=== PATIENT | female | born 1955 | race Caucasian/White ===

== ENCOUNTER 2019-01-09 18:58 | Inpatient (IN) ==
[2019-01-09] MEDS ORDERED: methylPREDNISolone 125 MG/2 ML VIAL IVP ONE (19:16)
[2019-01-09] MEDS ORDERED: Azithromycin 500 MG in 0.9 % Sodium Chloride 250 ML IVPB ONE (19:16)
[2019-01-09] MEDS ORDERED: 0.9 % Sodium Chloride 1,000 ML IVC ONE (19:17)
[2019-01-09 19:34] LABS: Basophils % 0.4 %; Hemoglobin 12.4 g/dL (11.5-15.4); Immature Granulocytes % 0.5 % (0-4); Lymphocytes # 1.8 K/mcL (0.6-4.6); Mean Corpuscular HGB Conc 32.6 g/dL (31.6-35.5); Mean Corpuscular Hemoglobin 27.3 pg (28.0-33.3); Mean Corpuscular Volume 83.7 fL (83.0-100.0); Mean Platelet Volume 11.2 fL (9.4-12.4); Monocytes # 1.2 K/mcL (0.0-1.3); Monocytes % 11.1 %; Neutrophils # 7.4 K/mcL (1.6-8.9); Platelet Count 206 K/mcL (140-400); Red Blood Count 4.54 M/mcL (3.82-4.97); White Blood Count 10.5 K/mcL (4.3-11.1)
[2019-01-09] MEDS ORDERED: Ipratropium/Albuterol Neb 3 ML IH ONE (19:35)
[2019-01-09 19:48] LABS: Bilirubin,Urine Negative (Negative); Blood,Urine Negative (Negative); Clarity,Urine Clear (Clear); Color,Urine Yellow (Yellow); Glucose,Urine (UA) >=1000 mg/dL (Normal); Ketones,Urine Negative (Negative); Leukocyte Esterase,Urine Negative (Negative); Nitrite,Urine Negative (Negative); PH,Urine 5.5 pH Units (5.0-8.0); Protein,Urine 30 mg/dL (Neg-Trace); Specific Gravity,Urine > 1.030 (1.010-1.025); Urobilinogen,Urine Normal (Normal)
[2019-01-09 19:49] LABS: Bacteria,Urine None Seen per hpf (None-Few); Hyaline Casts,Urine None Seen per lpf (None-Few); RBC,Urine 0-3 per hpf (0-3); Squamous Epithelial Cell,Urine Many per lpf (None-Few); WBC,Urine 0-3 per hpf (0-3)
[2019-01-09 19:55] LABS: BUN/Creatinine Ratio 23 (6-26); Blood Urea Nitrogen 18 mg/dL (8-23); Calcium 9.4 mg/dL (8.6-10.3); Carbon Dioxide 28 mEq/L (23-29); Chloride 97 mEq/L (98-107); Glucose 440 mg/dL (70-105); Osmolality,Calculated 297 (280-300); Potassium 4.2 mEq/L (3.5-5.1); Sodium 133 mEq/L (136-145); eGFR For African Americans > 60 (> 60); eGFR For Non-African Americans > 60 (> 60)
[2019-01-09 19:58] LABS: Troponin I 0.07 ng/mL (< 0.04)
[2019-01-09] MEDS ORDERED: Acetaminophen 325 MG TABLET PO ONE (20:04)
[2019-01-09] MEDS ORDERED: cefTRIAXone 1,000 MG in Water for inj. (sterile) 10 ML IVP ONE (20:05)
[2019-01-09] MEDS ORDERED: Aspirin 81 MG TAB.CHEW PO STA (20:11)
[2019-01-09] MEDS ORDERED: *HR* Metoprolol 5 MG/5 ML VIAL IVP ONE (20:37)
[2019-01-09] MEDS ORDERED: Naloxone 0.4 MG/ML INJ IVP PRN (23:38)
[2019-01-09] MEDS ORDERED: Albuterol 2.5 MG/3 ML NEBULIZER IH PRN (23:40)
[2019-01-09] MEDS ORDERED: Dextrose Gel 15 GM/37.5 ML TUBE PO PRN ×2 (23:46)
[2019-01-09] MEDS ORDERED: *HR* Dextrose 50 % in Water (Syg) 50 ML SYRINGE IVP PRN (23:46)
[2019-01-09] MEDS ORDERED: D5% in Water 1,000 ML IVC PRN (23:46)
[2019-01-10] MEDS: MethylPREDNISolone 40 MG/ML VIAL IVP SCH ×3 (00:47→17:16)
[2019-01-10] MEDS: 0.9 % Sodium Chloride 1,000 ML IVC SCH ×2 (00:47→10:21)
[2019-01-10] MEDS: Insulin LISPRO 300 UNITS/3 ML VIAL SQ SCH ×7 (00:52→23:33)
[2019-01-10 02:02] LABS: Hematocrit 34.4 % (35.3-44.9); Hemoglobin 10.7 g/dL (11.5-15.4); Mean Corpuscular HGB Conc 31.1 g/dL (31.6-35.5); Mean Corpuscular Hemoglobin 26.8 pg (28.0-33.3); Mean Platelet Volume 11.4 fL (9.4-12.4); Platelet Count 167 K/mcL (140-400); Red Cell Distribution Width 13.9 % (11.5-14.5); White Blood Count 7.4 K/mcL (4.3-11.1)
[2019-01-10] MEDS ORDERED: Insulin Human Regular 10 UNIT in 0.9 % Sodium Chloride 10 ML IV ONE (02:19)
[2019-01-10 02:31] LABS: BUN/Creatinine Ratio 25 (6-26); Blood Urea Nitrogen 23 mg/dL (8-23); Calcium 8.4 mg/dL (8.6-10.3); Carbon Dioxide 25 mEq/L (23-29); Chloride 101 mEq/L (98-107); Glucose 624 mg/dL (70-105); Osmolality,Calculated 313 (280-300); Potassium 4.4 mEq/L (3.5-5.1); Sodium 135 mEq/L (136-145); eGFR For African Americans > 60 (> 60); eGFR For Non-African Americans > 60 (> 60)
[2019-01-10] MEDS: Ipratropium/Albuterol Neb 3 ML IH SCH ×4 (04:32→22:21)
[2019-01-10] MEDS: methIMAzole 5 MG TABLET PO SCH ×2 (10:20→21:29)
[2019-01-10] MEDS: Metoprolol XL (24 HR) Succ 50 MG TAB.ER.24H PO SCH (10:20)
[2019-01-10] MEDS: Venlafaxine XR (24 HR) 37.5 MG CAP.ER.24H PO SCH (10:20)
[2019-01-10] MEDS: Diltiazem CD (24hr) 240 MG CAPSULE PO SCH (10:20)
[2019-01-10] MEDS: Insulin DETEMIR 100 UNIT/ML X5UNITS SQ SCH ×2 (10:21→21:27)
[2019-01-10] MEDS: cefTRIAXone 1,000 MG in Water for inj. (sterile) 10 ML IVP SCH (10:21)
[2019-01-10] MEDS: *HR* Rivaroxaban 10 MG TABLET PO SCH (17:16)
[2019-01-10] MEDS: Azithromycin 500 MG in D5% in Water 250 ML IVPB SCH (21:27)
[2019-01-11] MEDS ORDERED: Insulin LISPRO 300 UNITS/3 ML VIAL SQ ONE (01:15)
[2019-01-11] MEDS: Ipratropium/Albuterol Neb 3 ML IH SCH ×4 (04:21→22:48)
[2019-01-11] MEDS: MethylPREDNISolone 40 MG/ML VIAL IVP SCH ×2 (05:18→17:14)
[2019-01-11 05:31] LABS: Basophils % 0.1 %; Hematocrit 35.2 % (35.3-44.9); Hemoglobin 11.5 g/dL (11.5-15.4); Immature Granulocytes % 0.9 % (0-4); Lymphocytes # 1.9 K/mcL (0.6-4.6); Lymphocytes % 16.9 %; Mean Corpuscular HGB Conc 32.7 g/dL (31.6-35.5); Mean Corpuscular Hemoglobin 27.2 pg (28.0-33.3); Mean Corpuscular Volume 83.2 fL (83.0-100.0); Monocytes # 0.7 K/mcL (0.0-1.3); Monocytes % 5.9 %; Neutrophils # 8.5 K/mcL (1.6-8.9); Platelet Count 228 K/mcL (140-400); Red Blood Count 4.23 M/mcL (3.82-4.97); Red Cell Distribution Width 13.8 % (11.5-14.5); Segmented Neutrophils % 76.2 %; White Blood Count 11.1 K/mcL (4.3-11.1)
[2019-01-11 05:50] LABS: BUN/Creatinine Ratio 45 (6-26); Blood Urea Nitrogen 33 mg/dL (8-23); Calcium 9.1 mg/dL (8.6-10.3); Carbon Dioxide 24 mEq/L (23-29); Chloride 105 mEq/L (98-107); Glucose 375 mg/dL (70-105); Osmolality,Calculated 309 (280-300); Potassium 4.4 mEq/L (3.5-5.1); Sodium 138 mEq/L (136-145); eGFR For African Americans > 60 (> 60); eGFR For Non-African Americans > 60 (> 60)
[2019-01-11] MEDS: Diltiazem CD (24hr) 240 MG CAPSULE PO SCH (08:42)
[2019-01-11] MEDS: Metoprolol XL (24 HR) Succ 50 MG TAB.ER.24H PO SCH (08:42)
[2019-01-11] MEDS: cefTRIAXone 1,000 MG in Water for inj. (sterile) 10 ML IVP SCH (08:43)
[2019-01-11] MEDS: methIMAzole 5 MG TABLET PO SCH ×2 (08:43→20:19)
[2019-01-11] MEDS: Venlafaxine XR (24 HR) 37.5 MG CAP.ER.24H PO SCH (08:43)
[2019-01-11] MEDS: Insulin DETEMIR 100 UNIT/ML X5UNITS SQ SCH ×2 (08:45→20:18)
[2019-01-11] MEDS: Insulin LISPRO 300 UNITS/3 ML VIAL SQ SCH ×7 (08:47→20:18)
[2019-01-11] MEDS: *HR* Rivaroxaban 10 MG TABLET PO SCH (17:14)
[2019-01-11] MEDS: Azithromycin 500 MG in D5% in Water 250 ML IVPB SCH (20:19)
[2019-01-12] MEDS: Ipratropium/Albuterol Neb 3 ML IH SCH ×2 (03:49→10:57)
[2019-01-12] MEDS: MethylPREDNISolone 40 MG/ML VIAL IVP SCH (05:11)
[2019-01-12 07:47] VITALS: BP 156/68
[2019-01-12] MEDS: Insulin LISPRO 300 UNITS/3 ML VIAL SQ SCH ×4 (09:01→12:04)
[2019-01-12] MEDS: cefTRIAXone 1,000 MG in Water for inj. (sterile) 10 ML IVP SCH (09:02)
[2019-01-12] MEDS: Metoprolol XL (24 HR) Succ 50 MG TAB.ER.24H PO SCH (09:03)
[2019-01-12] MEDS: Diltiazem CD (24hr) 240 MG CAPSULE PO SCH (09:03)
[2019-01-12] MEDS: Venlafaxine XR (24 HR) 37.5 MG CAP.ER.24H PO SCH (09:03)
[2019-01-12] MEDS: methIMAzole 5 MG TABLET PO SCH (09:03)
[2019-01-12] MEDS: Insulin DETEMIR 100 UNIT/ML X5UNITS SQ SCH (09:05)
[2019-01-12] MEDS ORDERED: FLU Vac QV 19-20 (6Month+)/PF 0.5 ML SYRINGE IM ONE (10:49)
== END 2019-01-12 13:10 | disposition home or self-care (01) | DRG 871 ==
LOC: 2NENU 18:58 → EMEROOARM 18:58 → SUATTDRO 20:59 → 2NENU 21:23
PROVIDERS: ADMIT Family Medicine; ATTEND Internal Medicine